=== PATIENT | female | born 1985 | race Caucasian/White ===

== ENCOUNTER 2016-10-15 09:49 | Emergency (ER) | payer BC, OTHER ==
--- NOTE | ~2016-10-15 | CR63 ---
[facility] A Service of [facility] RADIOLOGY TEXT RESULTS PATIENT: DENICE SIN LOCATION: SED : [birth year] UNIT #: [id number] AGE: [address]: Reinaldo Peters MD SEX: F ORDER DR: [id number] [address] [address] [id number] MR#: [id number] Acc #: [id number] NAME: DENICE SIN : 1985 SEX: F STUDY DATE/TIME: 10/15/2016 09:55 UNIT: SED ROOM: STUDY DESCRIPTION: CR Chest 2 View Attending Physician: Reinaldo Peters M.D. Ordering Physician: Reinaldo Peters M.D. Primary Care Physician: Caitlyn Nelson M.D. MEDICAL IMAGING REPORT This report is preliminary unless electronic signature is present. EXAM Chest 2 views 10/15/2016 0955 hours HISTORY 30-year-old woman with cough since yesterday. History of asthma. COMPARISON 04/04/2015, 06/23/2016. FINDINGS Upright PA and lateral views of the chest demonstrate normal heart size. There is mild right hilar soft tissue fullness likely related to slight rightward rotation of the patient on this film. The lungs are clear. There are no effusions. IMPRESSION There is mild right hilar fullness likely accounted for by slight rotation of the patient and normal vascularity. No hilar lesion is seen on the lateral view. The lungs are clear and there is no effusion. Dictated by... Lizzy Marcum M.D. THIS IS AN ELECTRONICALLY VERIFIED REPORT Lizzy Marcum M.D. at 10/15/2016 1:55 PM DHAVAL/radha TD: 10/15/2016 10:38 [facility] A Service of [facility] RADIOLOGY TEXT RESULTS PATIENT: DENICE SIN LOCATION: SED : 81 UNIT #: [id number] AGE: [address]: Reinaldo Peters MD SEX: F ORDER DR: YANELI #: [id number] MEDICAL IMAGING REPORT Page 1 of 1
[~2016-10-15 09:49] MED LIST: ADVAIR 2501 DISK W/D PO; ADVAIR INH; ALBUTEROL MININEB NEB; ALBUTEROL0.83 MG/ML IH; ALBUTEROL17 GM INH; ASPIRIN81 M2 PO; CARDIZEM CD120 MG PO; CIPRO500 MG/5 M PO; CLEOCIN PO; DOXYCYCLINE MO150 MG; FLONASE 0.05% N16 G1; FLONASE16 GM; LOTRIMIN 1% CR30 GM TOP; LYSINE500 M1 PO; MACROBID100 MG PO; MULTI-DAY VITAM1 TAB PO; PHENERGAN PO; PREDNISONE; PREDNISONE PO; PREDNISONE50 MG PO; PREMARIN PO; PREVACID PO; PRILOSEC PO; PROMETHAZINE-D240 ML PO; PROVENTIL0.83 MG/ML INH; PYRIDIUM PO; ROBITUSSIN A-C-S1 ML PO; SINGULAIR PO; TESSALON PERLE100 M1 PO; TESSALON200 MG PO; ULTRAM PO; VOLTAREN50 MG PO; XOPENEX HFA15 GM NEB; XOPENEX0.63 MG/3 IH; ZYRTEC PO; ZYRTEC10 M2 PO
[2016-10-15 09:54] LABS: INFLUENZA A POS (NEG); INFLUENZA B NEG (NEG)
== END 2016-10-15 11:05 | disposition home or self-care (01) ==
LOC: SED 09:49
PROVIDERS: Emergency Medicine
DX: J10.1 Influenza due to other identified influenza virus with other respiratory manifestations (principal); J45.909 Unspecified asthma, uncomplicated; Z79.899 Other long term (current) drug therapy; Z88.1 Allergy status to other antibiotic agents; Z88.2 Allergy status to sulfonamides; Z88.8 Allergy status to other drugs, medicaments and biological substances
CPT/HCPCS: 71020; 87651; 87804; 99283